=== PATIENT | female | born 1955 | race Two or more races ===

== ENCOUNTER 2021-05-09 07:00 | Day surgery (SDC) | payer OTHER | END 2021-05-09 13:50 | disposition home or self-care (01) | LOC: AMB-ENDOS 07:00 | PROVIDERS: ATTEND Colon & Rectal Surgery | DX: K63.5 Polyp of colon (principal); K64.1 Second degree hemorrhoids ==

== ENCOUNTER 2021-07-03 11:00 | Inpatient (IN) | payer OTHER ==
[~2021-07-03] VITALS: Ht 162.6 cm; Wt 72.6 kg
[2021-07-03] MEDS ORDERED: FOLIC AC PO (14:40)
[2021-07-03] MEDS ORDERED: LOTREL 10-40 M1 EACH PO (14:40)
[2021-07-03] MEDS ORDERED: LEVOTHYROXINE25 MCG PO (14:41)
[2021-07-03] MEDS ORDERED: DILANTIN100 MG PO (14:41)
[2021-07-03] MEDS ORDERED: AVALIDE 300-121 EACH PO (14:41)
[2021-07-03] MEDS ORDERED: DILANT PO (14:42)
[2021-07-03] MEDS ORDERED: COUMADIN PO (14:44)
[2021-07-03] MEDS ORDERED: CUMADIN PO (14:45)
[2021-07-08] MEDS ORDERED: PHENYTOIN50 MG (14:43)
[2021-07-08] MEDS ORDERED: WARFARIN SODIUM4 MG (14:44)
[2021-07-08] MEDS ORDERED: FOLIC ACID1 MG PO (14:45)
== END 2021-07-11 16:39 | disposition home or self-care (01) | DRG 331 ==
LOC: EDSTATUS 11:00 → ADM 11:00 → SURH 07-08 07:00 → O/R 07-08 07:12 → SURH 07-08 11:00 → SURG 07-09 11:18
PROVIDERS: ADMIT Colon & Rectal Surgery; ATTEND Colon & Rectal Surgery
PROC: 0DTP4ZZ Resection of Rectum, Percutaneous Endoscopic Approach (ICD-10-PCS; 2021-07-08)
PROC: 07BC4ZZ Excision of Pelvis Lymphatic, Percutaneous Endoscopic Approach (ICD-10-PCS; 2021-07-08)
PROC: 0DTN4ZZ Resection of Sigmoid Colon, Percutaneous Endoscopic Approach (ICD-10-PCS; principal; 2021-07-08 07:00)
DX: D12.5 Benign neoplasm of sigmoid colon (principal); K63.89 Other specified diseases of intestine; N73.6 Female pelvic peritoneal adhesions (postinfective); I13.10 Hypertensive heart and chronic kidney disease without heart failure, with stage 1 through stage 4 chronic kidney disease, or unspecified chronic kidney disease; N18.30 Chronic kidney disease, stage 3 unspecified; E03.8 Other specified hypothyroidism; Z86.010 Personal history of colon polyps